=== PATIENT | male | born 1990 | race Caucasian/White ===

== ENCOUNTER 2025-06-17 03:13 | Observation (INO) | payer MEDICARE ==
[2025-06-17] VITALS (13 sets, daily range): BP systolic 95–133; BP diastolic 46–83
[~2025-06-17] VITALS: Ht 175.3 cm; Wt 56.9 kg
[2025-06-17] MEDS ORDERED: SODIUM CHLORIDE 0.9% 1,000 ML IV PRN (03:30)
[2025-06-17 03:34] LABS: BASOPHILS 0.3 % (0.2-1.2); EOSINOPHILS 0.1 % (0.8-7.0); LYMPHOCYTES 9.2 % (21.8-53.1); MCH 31.8 PG (25.7-32.2); MCHC 36.0 g/dL (32.3-36.5); MCV 88.3 fL (79.0-92.2); MONOCYTES 7.4 % (5.3-12.2); NEUTROPHILS 82.6 % (34.0-67.9); RBC 5.56 M/uL (4.63-6.08)
[2025-06-17] MEDS ORDERED: LACTATED RINGER'S 1,000 ML IV ONE ×2 (03:45→05:45)
[2025-06-17] MEDS ORDERED: KETOROLAC TROMETHAMINE 30 MG/ML VIAL IV ONE (03:45)
[2025-06-17] MEDS ORDERED: FAMOTIDINE 20 MG/ 2 ML VIAL IV ONE (03:45)
[2025-06-17 03:49] LABS: ALT (SGPT) 17.0 U/L (14-59); AST (SGOT) 12.0 U/L (15-37); GLOMERULAR FILTRATION RATE,EST 64.0 mL/min (>60); PROTEIN, TOTAL 8.2 g/dL (6.4-8.2); UREA NITROGEN 16.0 mg/dL (7-18)
[2025-06-17] MEDS ORDERED: CEFAZOLIN SODIUM 2 GM in SODIUM CHLORIDE 0.9% 100 ML IV ONE (05:00)
[2025-06-17] MEDS ORDERED: LACTATED RINGER'S 1,000 ML IV SCH ×3 (05:00→09:45)
[2025-06-17] MEDS ORDERED: MORPHINE SULFATE 4 MG/ML VIAL IV PRN (05:15)
[2025-06-17 05:35] LABS: LACTIC ACID, BLOOD 2.4 mmol/L (0.4-2.0)
--- NOTE | 2025-06-17 06:32 | NUR ---
THIS RN TO ER TO PICKUP PATIENT VIA WHEELCHAIR. GIRLFRIEND PRESENT IN ER ROOM AND ACCOMPANIED PATIENT TO ROOM. PT PROVIDED WARM BLANKETS WHEN ARRIVING TO UNIT IN BED, VS STABLE, HR ANALISA IN THE 50'S, DENIES ANY CARDIAC HISTORY. PT DENIES NAUSEA DURING TRANSPORT BUT WHEN IN BED, RIGORS STARTED UNCONTROLLABLY AND PATIENT DEVELOPS NAUSEA WITH DRY HEEVES, EMESIS BAG PROVIDED. PT PROVIDED ANOTHER WARM BLANKET AND QUICKLY FALSS ASLEEP, SHAKING STOPS. IV BOLUS INFUSING UPON ARRIVAL TO FLOOR AND FINISHES DURING ASSESSMENT. IV ABX COMPLETED. LR @125ML/HR STARTED POST BOLUS WHEN ARRIVED TO FLOOR. PT STATES PAIN IS IN LUQ RATES IT ABOUT 3/10, DENIES NEED FOR PAIN MEDS AT THIS, PT INFORMED ZOFRAN JUST GIVEN AND TOO SOON AT THIS TIME. DURING ASSESSMENT, PT FALLS ASLEEP AND THIS RN HAS TO WAKEN PATIENT WITH VOICE TO COMPLETE HISTORY FOR ADMISSION. PT NPO AT THIS TIME, PENDING SURGEON CONSULT AND PATIENT WAS INFORMED THAT UPON ARRIVING TO FLOOR. GIRLFRIEND PROVIDED WARM BLANKET AND SLEEPING IN RECLINER AT THIS TIME. LIGHT TURNED DOWN, CALL LIGHT WITHIN REACH. ALL PT CARE NEEDS MET AT THIS TIME.
[2025-06-17 07:41] LABS: LACTIC ACID, BLOOD 1.2 mmol/L (0.4-2.0)
--- NOTE | 2025-06-17 07:43 | NUR ---
REPORT RECEIVED FROM NEHEMIAS MORENO. ROUNDED WITH DR WESTON, SURGERY TO BE SCHEDULED FOR THIS AFTERNOON. PT VERY DROWSY, FIANCE IN ROOM. DENIES PAIN ATT.
--- NOTE | 2025-06-17 09:26 | NUR ---
PT REMAINS RESTING IN BED WITH EYES CLOSED. FIANCE IN ROOM, AWAKE IN CHAIR.
[2025-06-17] MEDS ORDERED: FAMOTIDINE 20 MG/ 2 ML VIAL IV SCH (09:39)
[2025-06-17] MEDS ORDERED: KETOROLAC TROMETHAMINE 30 MG/ML VIAL IV PRN (09:45)
[2025-06-17] MEDS ORDERED: MORPHINE SULFATE 10 MG/ML VIAL IV PRN (09:45)
--- NOTE | 2025-06-17 09:54 | NUR ---
PT NOW AWAKE AND TALKATIVE, DENIES PAIN OR NEEDS ATT. CALL LIGHT IN REACH.
--- NOTE | 2025-06-17 10:27 | NUR ---
ADMINISTERED SCHEDULED MED. PT HAD AN EPISODE OF DRY HEAVES, GIVEN ZOFRAN. ALSO HAD THE SHAKES, AFEBRILE. COMPLETED PREOP CHECKLIST.
--- NOTE | 2025-06-17 10:29 | NUR ---
MED REC COMPLETE
--- NOTE | 2025-06-17 10:49 | NUR ---
UR CLINICAL REVIEW: MCG-PER MCG REVIEW MEETS OBS FOR ACUTE APPENDICITIS WITH NEED FOR PAIN CONTROL AND SURGICAL PROCEDURE SELF PAY OBS 06/17/25 @ 0315 ORDER MATCHES REG NO AUTH REQUIRED FOR SELF PAY DICHARGE TO HOME WHEN PROCEDURE COMPLETE AND PATIENT STABLE 06/18/25
--- NOTE | 2025-06-17 10:53 | NUR ---
PT HAD ANOTHER BOUT OF DRY HEAVES AND WAS FEELING QUITE POOR, NEHEMIAS PATEL ADMINISTERED TITRATION DOSE OF ZOFRAN.
--- NOTE | 2025-06-17 10:55 | NUR ---
INTO SEE PATIENT. PERSONAL HEALTH INFORMATION OBTAINED. MOTHER IS PERSON OF CONTACT [facility] [phone]. HIS GIRLFRIEND JUST RECENTLY MOVED HERE. PATIENT DOES NOT USE DME. DOES NOT DRIVE. GAVE HIM A PHAMPLET FOR HOMELESS AND RESOURCES. ALSO CALLED [place] TO SEE IF HE QUALIFIES FOR MEDICAID. PATIENT DOES WANT SETUP WITH PCP.
--- NOTE | 2025-06-17 11:51 | NUR ---
CALLED DR WESTON REGARDING CONTINUING VOMITTING AND NAUSEA. ORDERED INAPSINE. ADMINISTERED SLOWLY DILUTED IV. PT STATES IT IS WHAT [facility]SA GIVEN INED. TOLERATED WELL. HAD A SMALL EPISODE OF HAND TINGLING DURING AN EMESIS, EXPLAINED, AND TOLD TO TAKE LONG SLOW BREATHES IN THROUGH NOSE AND OUT THROUGH MOUTH, HAS NOW RESOLVED. GF REMAINS IN ROOM.
--- NOTE | 2025-06-17 12:02 | NUR ---
PT GIVEN TORADOL AND INAPSINE FOR NAUSEA AND PAIN.
[2025-06-17] MEDS ORDERED: SEVOFLURANE 250 ML BTL INH ONE (13:04)
[2025-06-17] MEDS ORDERED: CEFAZOLIN SODIUM 2 GM in SODIUM CHLORIDE 0.9% 100 ML IV SCH (14:00)
[2025-06-17] MEDS ORDERED: LIDOCAINE HCL 2% 5 ML SDV ONE (14:23)
[2025-06-17] MEDS ORDERED: ROCURONIUM BROMIDE 50 MG/5 ML SYR ONE (14:23)
[2025-06-17] MEDS ORDERED: fentaNYL citrate 100 MCG/2 ML VIAL ONE (14:23)
[2025-06-17] MEDS ORDERED: MIDAZOLAM HCL 2 MG/2 ML VIAL ONE (14:29)
--- NOTE | 2025-06-17 14:39 | NUR ---
PT OFF FLOOR WITH SUPERVISOR COLD ROLLING MILY.
[2025-06-17] MEDS ORDERED: DEXAMETHASONE SOD PHOS 4 MG/ML VIAL ONE (15:10)
--- NOTE | 2025-06-17 15:20 | NUR ---
CHART SENT TO CLINIC TO REQUEST PCP.
[2025-06-17] MEDS ORDERED: ACETAMINOPHEN 1,000 MG/100 ML VIAL ONE (15:35)
[2025-06-17] MEDS ORDERED: HYDROmorphone HCL 1 MG/ML SYR IV PRN (15:45)
[2025-06-17] MEDS ORDERED: NALOXONE HCL 0.4 MG SYR IV PRN (15:45)
[2025-06-17] MEDS ORDERED: MIDAZOLAM HCL 2 MG/2 ML VIAL IV PRN (15:45)
[2025-06-17] MEDS ORDERED: IBLOOD GLUCOSE TEST STRIP 1 EA TEST VI PRN (15:45)
[2025-06-17] MEDS ORDERED: fentaNYL citrate 50 MCG/ML SDV IV PRN (15:45)
[2025-06-17] MEDS ORDERED: SUGAMMADEX SODIUM 200 MG/2 ML ML ONE (15:56)
[2025-06-17] MEDS ORDERED: KETOROLAC TROMETHAMINE 30 MG/ML VIAL ONE (15:59)
--- NOTE | 2025-06-17 16:22 | NUR ---
06/17/25 1622 Araceli Garcia 1616: PT ARRIVES TO PACU WITH ORAL AIRWAY IN PLACE. REPORT RECEIVED FROM CREW BOAT OPERATOR AND PURCHASING MANAGER/SALES.
[2025-06-17] MEDS ORDERED: ACETAMINOPHEN 500 MG TAB PO PRN (17:30)
[2025-06-17] MEDS ORDERED: IBUPROFEN 600 MG TAB PO PRN (17:30)
[2025-06-17] MEDS ORDERED: HYDROCODONE/ACETA 5/325 TAB PO PRN (17:30)
--- NOTE | 2025-06-17 17:40 | NUR ---
PT TO FLOOR WITH NEHEMIAS ROJAS. PT DROWSY BUT ANSWERS QUESTIONS APPROP. WANTS WATER AND FOOD. GF IN ROOM. VS STABLE. GIVEN WATER AND JELLO AND ADVISED TO GO VERY SLOW. CALLED BACK IN LESS THAN 5 MINUTES LATER FOR NAUSEA AND DRY HEAVING. ADVISED TO NOT DRINK OR EAT FOR ATLEAST ANOTHER HOUR.
--- NOTE | 2025-06-17 19:38 | NUR ---
REPORT RECIEVED FROM NEHEMIAS LUDWIG AND NEHEMIAS CARVALHO. PATIENT RESTING IN BED WITH HIS GIRLFRIEND AT BEDSIDE. PATIENT REPORTING 7/10 PAIN AND REQUESTING PAIN MEDICATION. PATIENT WITHOUT FURTHER NEEDS AT THIS TIME. CALL LIGHT AND PERSONAL BELONGINGS ARE WITHIN REACH.
--- NOTE | 2025-06-17 19:48 | NUR ---
PATIENT MEDICATED PER EMAR. PATIENT RESTING IN BED TALKING ON THE PHONE WITH HIS GIRLFRIEND AT BEDSIDE. VITAL SIGNS TAKEN AND ARE STABLE. PATIENT WITHOUT FURTHER NEEDS AT THIS TIME. CALL LIGHT AND PERSONAL BELONGINGS ARE WITHIN REACH.
--- NOTE | 2025-06-17 20:52 | NUR ---
PATIENT MEDICATED PER EMAR. PATIENT SITTING UP IN BED WITH HIS GIRLFRIEND AT BEDSIDE. VTIAL SIGNS TAKEN AND ARE STABLE. PATIENT WITHOUT FURTHER NEEDS AT THIS TIME. CALL LIGHT AND PERSONAL BELONGINGS ARE WITHIN REACH.
--- NOTE | 2025-06-17 21:49 | NUR ---
PATIENT MEDICATED PER EMAR. PATIENT RESTING IN BED WITH HIS GIRLFRIEND AT BEDSIDE. PATIENT WITHOUT FURTHER NEEDS AT THIS TIME. CALL LIGHT AND PERSONAL BELONGIGNS ARE WITHIN REACH. VITAL SIGNS TAKEN AND ARE STABLE.
--- NOTE | 2025-06-17 22:30 | NUR ---
PATIENT REPORTING NAUSEA. PRN DOSE OF ZOFRAN ADMINISTERED. PATIENT RESTING IN BED WITH HIS GIRLFRIEND NEXT TO HIM. PATIENT WITHOUT FURTHER NEEDS AT THIS TIME. CALL LIGHT AND PERSONAL BELONGINGS ARE WITHIN REACH.
--- NOTE | 2025-06-17 23:07 | NUR ---
PATIENT RESTING IN BED WITH HIS EYES CLOSED. EVEN AND UNLABORED RESPIRATIONS NOTED. CALL LIGHT AND PERSONAL BELONGINGS ARE WITHIN REACH.
[2025-06-18] VITALS (11 sets, daily range): BP systolic 106–124; BP diastolic 53–92
--- NOTE | 2025-06-18 00:22 | NUR ---
PATIENT RESTING IN BED WITH HIS GIRLFRIEND. PATIENT WITH EYES CLOSED. EVEN AND UNLABORED RESPIRATIONS NOTED. CALL LIGHT AND PERSONAL BELONGINGS ARE WITHIN REACH.
--- NOTE | 2025-06-18 01:05 | NUR ---
RECEIVED REPORT FROM NEHEMIAS RIVAS. PATIENT RESTING WITH SIGNIFICANT OTHER IN BED. IV FLUIDS INFUSING. PT ALLOWED TO SLEEP AT THIS TIME, CALL LIGHT IS WITHIN REACH.
--- NOTE | 2025-06-18 02:00 | NUR ---
THIS RN IN PATIENT ROOM, LEARNING ENGINEER ASSISTING PT UP TO BATHROOM, VOIDED 750ML URINE. UA SAMPLE SENT - WAS NOT COLLECTED TODAY. IV FLUIDS INFUING. PT REPORTED PAIN 6/10 TO RLQ ABDOMEN, PRN MEDS GIVEN - SEE MAR. PT UMBILICAL LAP SITE IS BOTHERING PATIENT SOME BLEEDING BUT NOT ALOT, COVERED WITH GAUZE FOR PATIENT COMFORT, THERE IS SCANT DRIED BLOOD ON OTHER LAP SITES, ALL LOOK ASPECTED, REINFORCED THAT TO PATIENT, NOTHING CONCERNING. PT PROVIDED JELLO WITH MEDS. FRESH ICE WATER PROVIDED FOR BOTH PATIENT/SO. NO OTHER SIGNIFICANT ISSUES AT THIS TIME. CALL LIGHT WITHIN REACH.
[2025-06-18 02:01] LABS: BLOOD/HGB, URINE NEGATIVE (Negative); KETONE, URINE SMALL (Negative); LEUK ESTERASE, URINE NEGATIVE (negative); NITRITE, URINE NEGATIVE (negative)
--- NOTE | 2025-06-18 03:13 | NUR ---
PT SO PRESENT IN BED WITH PATIENT WHEN THIS RN ENTER ROOM. PT C/O PAIN STILL 03/05, PT IS LIFTING ARM ABOVE HEAD, CRADLING SO IN BED, LAYING ON LEFT SIDE. INFORMED PATIENT TO REST ARM TO SIDE SO IT IS NOT STRETCHING HIM, PROVIDED PATIENT WARM PACK TO RIGHT SIDE, PT DID NOT EAT ANY OF THE JELLO PROVIDED AND WITH THE NORCO MAKING HIM NAUSEATED INFORMED AND EXPRESSED MY CONCERN TO GIVE HIM IT AGAIN HE WAS NAUSEATED EARLIER WHILE TAKING ON EMPTY STOMACH, WILL FOLLOW-UP AND SEE HOW THE WARM PACK HELPS WITH PAIN. PT DENIES ANY OTHER NEEDS AT THIS TIME, CALL LIGHT WITHIN REACH.
--- NOTE | 2025-06-18 05:39 | NUR ---
PT UTILIZES CALL LIGHT, REQUESTS TO BE UNPLUGGED TO GO TO THE BATHROOM. PT UP TO BATHROOM INDEPENDENTLY AFTER BEING UNPLUGGED. PT UTILIZES CALL LIGHT WHEN HE IS FINISHED IN BATHROOM. PT REPORTING 8/10 PAIN TO ABD. STATES THAT HE IS HAVING PAIN THROUGHOUT ABD AND UNDER R RIBS. ENCOURAGED PT TO AMBULATE. PRN ADMINISTERED, SEE EMAR. PT DENIES FURTHER NEEDS AT THIS TIME. CALL LIGHT IN REACH.
--- NOTE | 2025-06-18 07:07 | NUR ---
VERBAL REPORT RECEIVED FROM NEHEMIAS CHOPRA. PT AMBULATES IN HALLWAY WITH S/O, STEADY GAIT. NO REQUESTS AT THIS TIME.
--- NOTE | 2025-06-18 07:44 | NUR ---
REPORT RECEIVED FROM TIFFANIE DEL CID. PATIENT AMBULATING HALLS WITH FIANCE. NO APPARENT NEEDS NOTED AT THIS TIME.
--- NOTE | 2025-06-18 08:33 | NUR ---
PATIENT SITTING UPRIGHT IN CHAIR, FIANCE AT BEDSIDE. PT REPORTS 8/10 PAIN. PRN PAIN MEDICATION AND SCHEDULED PAIN MEDICATION ADMINISTERED. ASSESMENT COMPLETED. PATIENT DENIES CONCERNS AT THIS TIME.
--- NOTE | 2025-06-18 09:52 | NUR ---
PT SITTING IN CHAIR, VISITOR IN THE BED. PT STILL EXPERIENCING PAIN, ESPECIALLY WHEN HICCUPPING. TV ON, PT RADHA ABLE TO EAST MUCH BREAKFAST. CALL LIGHT WITHIN REACH AND PT HAS FRESH ICE WATER NEAR HIM IN THE CHAIR.
--- NOTE | 2025-06-18 10:12 | NUR ---
NO CM NEEDS. LIKELY DC TO HOME TODAY. PENDING PCP WITH [facility].
--- NOTE | 2025-06-18 11:10 | NUR ---
PATIENT GIVEN 8MG OF IV ZOFRAN FOR NAUSEA, 30MG OF IV TORADOL FOR 8/10 ABD PAIN. NO OTHER NEEDS AT THIS TIME.
--- NOTE | 2025-06-18 11:35 | NUR ---
PT NOT AVAILABLE FOR VISIT. PROVIDED PRAYER.
--- NOTE | 2025-06-18 12:05 | NUR ---
PATIENT IN BED WITH FIANCE AT BEDSIDE. PATIENT REPORTS 9/10 PAIN. PRN PAIN MEDICATION ADMINISTERED.
--- NOTE | 2025-06-18 12:20 | NUR ---
PATIENT IN BED, FAINCE AT BEDSIDE. PATIENT REPORTS 8/10 PAIN. PRN PAIN MEDICATION ADMINISTERED. PATIENT DENIES FURTHER CONCERNS.
--- NOTE | 2025-06-18 14:39 | NUR ---
PATIENT IN BED, FIANCE AT BEDSIDE. SCHEDULED MEDICATIONS ADMINISTERED. ASSESMENT COMPLETE. PATIENT REPORTS 6/10 PAIN, PRN PAIN MEDICATION ADMINISTERED. PATIENT DENIES FURTHER CONCERNS.
--- NOTE | 2025-06-18 15:16 | NUR ---
PATIENT WALKING THE SANDERS WITH FIANCE
--- NOTE | 2025-06-18 15:37 | NUR ---
PATIENT BACK IN BED AFTER WALKING. PATIENT REPORTS INCREASED PAIN 9/10, AND NAUSEA. ENCOURAGED DEEP BREATHING AND REALXATION TECHNIQUES. PATIENT REPORTS PAIN DECREASED TO 6/10. PRN PAIN MEDICATION ADMINISTERED PER PATIENT REQUEST. CALL LIGHT AND PERSONAL BELONGINGS IN REACH OF PATIENT. PATIENT DENIES FURTHER CONCERNS AT THIS TIME.
--- NOTE | 2025-06-18 16:29 | NUR ---
PATIENT IN BED, FIANCE AT BEDSIDE. CALL LIGHT AND PERSONAL BELONGINGS IN REACH OF PATIENT.
--- NOTE | 2025-06-18 18:21 | NUR ---
PT ABOUT TO GET IN THE SHOWER. VISITOR HELPING. SIRGICAL SPOTS AND IV ON ARM BAGGED AND TAPED.
--- NOTE | 2025-06-18 18:22 | NUR ---
PT TOOK SHOWER - REPORTED FEELING BETTER, WARMER AND LESS SICK TO HIS STOMACH. FULL LINEN CHANGE. ROOM CLEANED AND TRASH TAKEN OUT. CARLEENT PT FRESH ICE WATER AND ICE PACK.
--- NOTE | 2025-06-18 18:23 | NUR ---
PATIENT IN SHOWER WITH KATIANAANCE ASSISTING HIM.
--- NOTE | 2025-06-18 19:28 | NUR ---
REPORT RECEIVED FROM DAY SHIFT RN. PATIENT RESTING IN BED. DENIES NEEDS AT THIS TIME. CALL LIGHT IN REACH.
--- NOTE | 2025-06-18 21:55 | NUR ---
PATIENT RESTING IN BED. SCHEDULED IV ABX INFUSING PER ORDER. IV FLUSHES WNL. ASSESSMENT COMPLETE. X3 LAP SITES C/D/I WITH MINIMAL DRAINAGE. PATIENT DENIES FURTHER NEEDS AT THIS TIME. CALL LIGHT IN REACH.
--- NOTE | 2025-06-18 23:05 | NUR ---
CALL LIGHT ANSWERED. PATIENT REPORTING NAUSEA, PRN MEDICATION ADMINISTERED. PATIENT DENIES FURTHER NEEDS AT THIS TIME. CALL LIGHT IN REACH.
--- NOTE | 2025-06-18 23:56 | NUR ---
PATIENT RESTLESS IN BED STATING HE NEEDS TO TAKE A SHOWER. PATIENT STATED THE SHOWER WOULD MAKE HIM FEEL BETTER. THIS RN HELPED ASSIST PATIENT TO SHOWER. PATIENT DENIES FURTHER NEEDS. CALL LIGHT IN REACH.
--- NOTE | 2025-06-19 00:55 | NUR ---
PATIENT OUT OF SHOWER AND RESTING IN CHAIR. PATIENT ABLE TO EAT APPLE SAUCE. ALEJANDRA WELL. NO NAUSEA OR VOMITING NOTED. PATIENT DENIES FURTHER NEEDS. CALL LIGHT IN REACH. IV FLUID INFUSING PER ORDER.
--- NOTE | 2025-06-19 02:23 | NUR ---
PATIENT RESTING IN BED WITH EYES CLOSED. RESPIRATIONS EVEN AND UNLABORED. CALL LIGHT IN REACH.
--- NOTE | 2025-06-19 04:00 | NUR ---
PATIENT RESTING IN BED ON BACK WITH EYES CLOSED. RESPIRATIONS EVEN AND UNLABORED. CALL LIGHT IN REACH.
[2025-06-19 05:57] VITALS: BP 102/66
--- NOTE | 2025-06-19 06:07 | NUR ---
PATIENT RESTING IN BED WITH EYES CLOSED. RESPIRATIONS EVEN AND UNLABORED. SCHEDULED IV ABX INFUSING PER ORDER. PATIENT DENIES NEEDS AT THIS TIME. CALL LIGHT IN REACH.
--- NOTE | 2025-06-19 07:37 | NUR ---
REPORT RECEIVED FROM NEHEMIAS MCARTHUR. PATIENT IN BED, FIANCE AT BEDSIDE. CALL LIGHT AND PERSONAL BELONGINGS IN REACH OF PATIENT. NO APPARENT NEEDS NOTED AT THIS TIME.
--- NOTE | 2025-06-19 07:55 | NUR ---
SCHEDULED MEDICATIONS AND PRN PAIN MEDICATION ADMINISTERED PER PATIENT REQUEST. ASSESMENT COMPLETED. PATIENT ASSISTED INTO SHOWER AT HIS REQUEST.
[2025-06-19 09:24] VITALS: BP 125/78
[2025-06-19 10:00] VITALS: BP 125/78
--- NOTE | 2025-06-19 10:02 | NUR ---
PATIENT OUT OF SHOWER. PATIENT REPORTS 6/10 PAIN. PRN PAIN MEDICATION ADMINISTERED PER PATIENT REQUEST.
--- NOTE | 2025-06-19 10:11 | NUR ---
UR CONCURRENT REVIEW: 2 MN FOR VERSALUS-PER INSECTICIDE SUPERVISOR MEEST OBS FOR ACUTE APPY. ATTEMPTED TO CONTACT MD FOR CHANGE OF STATUS NEED VS DC. AWAITING RESPONSE. MEDICARE OBS 06/17/25 @ 0315 ORDER MATCHES REG NO AUTH PER MEDICARE GUIDELINES DISCHARGE TO HOME WHEN STABLE 06/19/25 @ 1600
--- NOTE | 2025-06-19 10:56 | NUR ---
PATIENT IN BED, VISITING WITH FIANCE WHO IS AT BEDSIDE. CALL LIGHT AND PERSONAL BELONGINGS IN REACH OF PATIENT.
[2025-06-19] MEDS ORDERED: IBUPROFEN600 MG PO (12:32)
[2025-06-19] MEDS ORDERED: ACETAMINOPHEN500 MG PO (12:33)
[2025-06-19] MEDS ORDERED: HYDROCODON-ACE1 EA10 PO (12:33)
--- NOTE | 2025-06-19 13:05 | NUR ---
MULTIPLE ATTEMPTS MADE TO SCHEDULE APPOINTMENT AT [facility] WITH NO ANSWER OF THE PHONE. PATIENT IS CUTTENTLY ON LIST FOR PCP NEED.
[2025-06-19 13:11] VITALS: BP 119/63
--- NOTE | 2025-06-19 13:23 | NUR ---
DISCHARGE ORDER IN PLACE. VITAL SIGNS COMPLETED AND STABLE. IV DC'D WNL, GAUZE AND COBAN DRESSING APPLIED AND PATIENT EDUCATION PROVIDED ON DRESSING. PATIENT LEFT MED SURG ESCORTED BY THIS RN VIA WHEELCHAIR. PATIENT WAS PROVIDED TRANSPORT BY PEDRO IN HER CAR, SHE DROVE. PATIENT HAS HIS WALLET, PHONE, WOMEN'S SOCCER COACH, SHOES, PHONE, AND CLOTHING. PATIENT TEACHING REVIEWED ON DISCHARGE INSTRUCTIONS INCLUDING WHEN TO FOLLOW UP. PATIENT VERBALIZED UNDERSTANDING AND DENIES FURTHER QUESTIONS OR CONCERNS.
--- NOTE | 2025-06-19 16:35 | HP ---
[facility] [address] [place] [address] Signed ADMISSION DATE: 06/17/2025 REASON FOR ADMISSION: Acute appendicitis. HISTORY OF PRESENT ILLNESS: This 34-year-old white man presented with right lower abdominal pain to the emergency room in the brick sorter hours, evaluated by Dr. Worley. This included clinical examination and a CT scan which was consistent with acute uncomplicated appendicitis. The patient had incidental finding of a chronic appearing L4 superior endplate compression fracture with 40% vertebral height loss. His white count was elevated at 15.90. Electrolytes abnormal only for a creatinine of 1.48. The patient had presentation with severe distress, dry heaves, and so on. Tenderness was noted in the right upper and mid epigastric area and nonreproducible rebound tenderness. He was directly admitted to the hospital and I was advised of this and now I assumed care. Currently, the patient is feeling much better. He is not having too much pain and no fever or chills. REVIEW OF SYSTEMS: He denies any shortness of breath or chest pain. He has had no dysuria or dysphagia. He certainly had a fair amount of retching at his presentation, but this has resolved. PHYSICAL EXAMINATION: GENERAL: This is a thin white man accompanied by his significant other female. VITAL SIGNS: Temperature is 97.7, pulse 50, blood pressure 118/72, oxygen saturation on room air is 100%. NECK: Trachea is midline. CHEST: Clear. HEART: Regular. ABDOMEN: Thin and easily palpated. Rovsing sign is negative. There is mild tenderness in the right lower quadrant. There is no palpable mass. EXTREMITIES: Show no clubbing, cyanosis, or edema. LABORATORY STUDIES: At 0200 hours showed a white count of 15.9, hematocrit 49.1. Electrolytes were previously reported but creatinine notably is 1.48. Bilirubin 1.5. Liver enzymes normal. Lipase was normal as well. Review of the CT scan as well as radiologic interpretation confirms a distended fluid-filled appendix with periappendiceal fat stranding and no fecalith. Electronically Signed By: JOSE WESTON MD 06/19/25 1635 PATIENT NAME: ANTONY MELO HISTORY AND PHYSICAL DATE OF : [birth year] REPORT #: [id number] PHYSICIAN: JOSE WESTON MD PCP: NO PRIMARY CARE PHYSICIAN REPORT IS CONFIDENTIAL AND NOT TO BE RELEASED WITHOUT AUTHORIZATION [facility] [address], [place] [address] Signed ASSESSMENT: The patient has clinical and radiographic findings consistent with acute appendicitis. He had rather significant and severe symptoms upon presentation, which are much improved at this time. I recommended appendectomy as a remedy of the problem. The risk of bleeding, infection, need for open procedure, failure to cure his symptoms and need for other indicated procedures was reviewed. He understands and wished to proceed. We will plan to do this today. MD ELEAZAR Damico/ANALY /[id number] cc: Dr. Worley Copies: ~ Electronically Signed By: JOSE WESTON MD 06/19/25 1635 PATIENT NAME: ANTONY MELO MORRISTOWNAvis HISTORY AND PHYSICAL DATE OF : [birth year] REPORT #: [id number] PHYSICIAN: JOSE WESTON MD PCP: NO PRIMARY CARE PHYSICIAN REPORT IS CONFIDENTIAL AND NOT TO BE RELEASED WITHOUT AUTHORIZATION
--- NOTE | 2025-06-19 16:35 | OR ---
[facility] [address] [place], [place] [address] Signed DATE OF OPERATION: 06/17/2025 SURGEON: Jose Weston MD PREOPERATIVE DIAGNOSIS: Acute appendicitis. POSTOPERATIVE DIAGNOSIS: Acute appendicitis. PROCEDURE: Laparoscopic appendectomy. ANESTHESIA: General endotracheal, Will Avery, PNEUMATIC JACK OPERATOR and local 10 mL of 0.25% Marcaine with epinephrine. INDICATION: This 34-year-old white man presented to the emergency room at approximately 3 this morning, having had several hours of increasing right lower abdominal pain and protracted nausea and vomiting. A CT scan confirmed a dilated appendix and findings consistent with acute appendicitis. He has been admitted, fluid resuscitated, given intravenous antibiotics and now to undergo appendectomy preferred by a laparoscopic approach. The risk of bleeding, infection, need for open procedure, need for other indicated procedures and so forth were all reviewed in detail. He understands and wished to proceed. FINDINGS: Indeed the appendix was quite markedly dilated and inflamed. The base was normal. The appendix once excised was opened on the back table by the circulating nurse and found to have mucoid material within the lumen, but no actual neoplasm proper. The terminal ileum, liver and gallbladder were normal as was the cecum. DESCRIPTION OF PROCEDURE: The patient was brought to the operating room, given a general endotracheal anesthetic. Preoperative antibiotic Ancef and Flagyl had been given. Sequential compression device stockings were used. He underwent general endotracheal anesthesia without problem. The abdomen was clipped and prepared with a chlorhexidine solution and draped sterilely. An infraumbilical incision was made and using an open April cannula technique, Electronically Signed By: JOSE WESTON MD 06/19/25 1445 PATIENT NAME: ANTONY MELO OPERATIVE REPORT DATE OF : [birth year] REPORT #: [id number] PHYSICIAN: JOSE WESTON MD PCP: NO PRIMARY CARE PHYSICIAN REPORT IS CONFIDENTIAL AND NOT TO BE RELEASED WITHOUT AUTHORIZATION [facility] [address] [place], [place] [address] Signed pneumoperitoneum was achieved to a level of 14 mmHg of carbon dioxide gas. Intra-abdominal inspection showed no sign of ascites or carcinomatosis. The gallbladder and liver were normal. A 12 mm port was placed in the epigastric area passing through the falciform ligament. A 5 mm right lower quadrant port was placed with two hand manipulation. The cecum was elevated and found to have a markedly dilated and inflamed appendix. The base was normal. The distal 2/3rd is quite dilated and inflamed. The appendix was elevated and a window created between the appendix and the cecum and using an Endo-NATASHA stapling device with a vascular load the appendix was transected, flushed with the cecum. Additional tissue was transected at the staple line to free it entirely. This allowed for complete isolation of the mesentery. This was secured with another Endo NATASHA stapling load vascular type. The appendix was extracted through the infraumbilical port, I withdrawn it into the trocar site itself. The appendix was photographed and later opened and found to have a jelly-like material within the lumen. Whether it is mucin or some other issue was uncertain, but there was no sign of actual neoplasm that could be told. Irrigation was undertaken in the right lower quadrant staple line. Both areas appeared hemostatic. Excess irrigation fluid was suctioned free. The trocars were removed under direct visualization showing no sign of bleeding. The epigastric and infraumbilical fascial incision was reapproximated with interrupted 0 Vicryl suture given his thin body habitus. 10 mL of 0.25% Marcaine with epinephrine was injected locally. The skin was closed with interrupted 3-0 Vicryl and Steri-Strips were applied. It is anticipated that the patient will be extubated in the operating room to be taken to recovery room in good condition. Blood loss was minimal. Complications none. MD ELEAZAR Damico/AGGIEL /[id number] cc: Dr. Jefferson Worley Electronically Signed By: JOSE WESTON MD 06/19/25 1635 PATIENT NAME: ANTONY MELO OPERATIVE REPORT DATE OF : [birth year] REPORT #: [id number] PHYSICIAN: JOSE WESTON MD PCP: NO PRIMARY CARE PHYSICIAN REPORT IS CONFIDENTIAL AND NOT TO BE RELEASED WITHOUT AUTHORIZATION [address] [address] Signed Copies: ~ Electronically Signed By: JOSE WESTON MD 06/19/25 1635 PATIENT NAME: ANTONY MELO SALLISAvis OPERATIVE REPORT DATE OF : [birth year] REPORT #: [id number] PHYSICIAN: JOSE WESTON MD PCP: NO PRIMARY CARE PHYSICIAN REPORT IS CONFIDENTIAL AND NOT TO BE RELEASED WITHOUT AUTHORIZATION
--- NOTE | 2025-06-21 09:54 | PATH ---
[facility] [address] [facility] [place], [place] [address] Signed SPECIMEN(S): A APPENDIX SPECIMEN SOURCE: A. APPENDIX CLINICAL HISTORY: Acute appendicitis FINAL PATHOLOGIC DIAGNOSIS: Appendix, appendectomy: - Fibrous obliteration of distal lumen. - Chronic appendicitis with focal acute appendicitis. - No malignancy identified. COMMENT: The entire appendix is submitted for histologic examination JLP MICROSCOPIC EXAMINATION: Histologic sections of all submitted blocks are examined by light microscopy. These findings, together with the gross examination, support the pathologic diagnosis. Histologic sections of all submitted blocks are examined by light microscopy. These findings, together with the gross examination, support the pathologic diagnosis. GROSS DESCRIPTION: The specimen, labeled and designated "Butch Ferrell, appendix per requisition," is received in formalin and consists of Specimen: Appendix with mesoappendix. Dimensions: 8.3 x 1.3 x 0.9 cm. Serosa: Hopper-pink with a linear incision from the distal tip down to the proximal margin. Defect: Other than mentioned above, no additional defects are identified. Inking: Staple line is inked Blue. Mucosa: Hopper-pink and pinpoint. Fecalith: Not grossly identified. Additional: None. 06/20/2025: The remainder of the appendix is submitted in cassettes A2 through A4 per Dr. Hussein's request Spool Winder sections are submitted in (A1). PATIENT NAME: ANTONY FERRELL HOMER PATHOLOGY DATE OF : 89 REPORT #: [id number] PHYSICIAN: SANJUANA PATHOLOGY PCP: NO PRIMARY CARE PHYSICIAN REPORT IS CONFIDENTIAL AND NOT TO BE RELEASED WITHOUT AUTHORIZATION [facility] [address] [place], [place] [address] Signed AA (under the direct supervision of a pathologist) The Gross Description was prepared using a voice recognition system. The report was reviewed for accuracy; however, sound-alike word errors, addition and/or deletions may occur. If there is any question about this report, please contact Client Services. ADDITIONAL NOTES: Immunohistochemical and/or in situ hybridization studies if performed in this case included appropriate positive controls that reacted as expected. This test was developed and its performance characteristics determined by [facility]. It has not been cleared or approved by the U.S. Food and Drug Administration. The FDA has determined that such clearance or approval is not necessary. This test is used for clinical purposes. It should not be regarded as investigational or for research. [facility] is certified under the Clinical Laboratory Improvement Amendments of 1988 (CLIA) as qualified to perform high complexity clinical laboratory testing. PERFORMING LABORATORY: Technical component was performed by [facility], [address] [place] [id number] (CLIA# [id number]). Professional interpretation was performed by [facility], [address] [place] [id number] (CLIA#: [id number]). Diagnostician: Anibal Hussein MD Pathologist Electronically Signed 06/21/2025 Copies: ~ PATIENT NAME: ANTOYN FERRELL PATHOLOGY DATE OF : [birth year] REPORT #: [id number] PHYSICIAN: SANJUANA NARVAEZ PCP: NO PRIMARY CARE PHYSICIAN REPORT IS CONFIDENTIAL AND NOT TO BE RELEASED WITHOUT AUTHORIZATION
--- NOTE | 2025-06-23 13:51 | DS ---
[facility] [address] [facility] [place], [place] [address] Signed ADMISSION DATE: 06/17/2025 DISCHARGE DATE: 06/19/2025 REASON FOR ADMISSION: Acute appendicitis. HISTORY: This 34-year-old man presented to emergency room with complaints of severe diffuse abdominal pain and cramping and was evaluated by Dr. Jefferson Washburn within the emergency room where he was found to have acute appendicitis based on clinical criteria and CT scan of the abdomen. He is admitted for further evaluation and care. PERTINENT PHYSICAL EXAMINATION: GENERAL: Showed a very thin white man accompanied by his significant other girlfriend. HEENT: Mucous membranes were slightly dry. TRACHEA: Midline. CHEST: Clear. HEART: Regular without murmur. ABDOMEN: Quite markedly tender throughout. HOSPITAL COURSE: On June 17, 2025, he underwent laparoscopic appendectomy after fluid resuscitation and IV antibiotic administration. I found it was a very dilated and inflamed appendix, which was opened on the back table and showed a fair amount of mucoid material and purulence. There was no sign of carcinomatosis or other abnormality in the peritoneal cavity is noted. His postoperative course was one of great improvement. He was improved, but not ready for discharge and he was discharged the following day, having resumed usual regular diet and able to ambulate without problem. His wounds were healing well. DISCHARGE MEDICATIONS: 1. Tylenol 1000 mg p.o. q.6 hours. 2. Motrin 600 mg p.o. q.i.d. p.r.n. pain. 3. Oxycodone 10 mg p.o. q.6 hours p.r.n. severe pain #10. DISCHARGE DIAGNOSES: Acute appendicitis status post laparoscopic appendectomy, June 17, 2025. FOLLOWUP PLANS: He will return to see me in approximately one week. If he has problems in the meantime, Electronically Signed By: JOSE WESTON MD 06/23/25 1351 PATIENT NAME: ANTONY MELO DISCHARGE SUMMARY DATE OF : [birth year] REPORT #: [id number] PHYSICIAN: JOSE WESTON MD PCP: NO PRIMARY CARE PHYSICIAN REPORT IS CONFIDENTIAL AND NOT TO BE RELEASED WITHOUT AUTHORIZATION [facility] [address] [place], [place] [address] Signed he will let me know. He is to keep his Steri-Strips in place. He is permitted to shower. He should walk on a daily basis. Jose Weston MD JM/MODL /[id number] cc: Dr. Washburn Copies: ~ Electronically Signed By: JOSE WESTON MD 06/23/25 1351 PATIENT NAME: ANTONY MELO DISCHARGE SUMMARY DATE OF : [birth year] REPORT #: [id number] PHYSICIAN: JOSE WESTON MD PCP: NO PRIMARY CARE PHYSICIAN REPORT IS CONFIDENTIAL AND NOT TO BE RELEASED WITHOUT AUTHORIZATION
== END 2025-06-19 13:23 | disposition home or self-care (01) ==
LOC: ED 03:13 → MS 03:15 → ED 05:59 → MS 06-19 13:23
PROVIDERS: Internal Medicine; ADMIT Surgery; ATTEND Surgery
PROC: 0DTJ4ZZ Resection of Appendix, Percutaneous Endoscopic Approach (ICD-10-PCS; principal; 2025-06-17 14:45)
DX: K35.80 Unspecified acute appendicitis (principal); K36 Other appendicitis; Z79.899 Other long term (current) drug therapy
CPT/HCPCS: 00840; 36415; 74177; 80053; 81003; 83036; 83605; 83690; 83735; 85025; 87040; 88304; 96361; 96365; 96366; 96367; 96374; 96375; 96376; 99285-25; A9270; G0378; J0131; J0688; J1100; J1171; J1790; J1885; J2003; J2250; J2270; J2405; J2704; J3010; J3490; J7030; J7121; Q9967